=== PATIENT | male | born 1980 | race Caucasian/White ===

== ENCOUNTER 2018-03-01 04:55 | Emergency (ER) | payer SELFPAY ==
[2018-03-01 05:03] VITALS: BP 126/77
[2018-03-01] MEDS ORDERED: HYDROCODONE/ACETAMINOPHEN 5-325 MG TABLET PO ONE (05:31)
[2018-03-01] MEDS ORDERED: CLINDAMYCIN HCL 150 MG CAPSULE PO ONE (05:31)
[2018-03-01] MEDS ORDERED: HYDROCODONE/ACETAMINOPHEN 5-325 MG (6 TAB/ER DISP) PO PRN (05:31)
--- NOTE | 2018-03-01 05:36 | ER Document Report ---
ED General - General Chief Complaint: Toothache Stated Complaint: TOOTHACHE Time Seen by Provider: 03/01/18 05:26 Notes: Patient is a 37-year-old male who presents with complaint of tooth pain. His pain in both lower and upper premolars. He says he has had this pain for approximately week and has worsened. He says he cannot sleep. Has not yet seen a dentist. He has not been on any antibiotics. He is on a facial swelling. No difficulty breathing or swallowing. No fevers. No other complaints at this time. TRAVEL OUTSIDE OF THE [place] IN LAST 30 DAYS: No - Related Data Allergies/Adverse Reactions: codeine [Codeine] Allergy (Verified 08/18/14 22:33) Penicillins Allergy (Verified 08/18/14 22:32) rash Past Medical History - Social History Smoking Status: Unknown if Ever Smoked Frequency of alcohol use: None Drug Abuse: None Family History: CAD, Hyperlipidemia, Hypertension Pulmonary Medical History: Reports: Hx Asthma, Hx Bronchitis, Hx Pneumonia - Immunizations Hx Diphtheria, Pertussis, Tetanus Vaccination: Yes - 2009 Review of Systems - Review of Systems Notes: My Normal Review Basic REVIEW OF SYSTEMS: CONSTITUTIONAL : Denies fever, chills, or sweats. Denies recent illness. EENT: Dental pain CARDIOVASCULAR: Denies chest pain. SKIN: Denies rash or skin lesions. NEUROLOGICAL: Denies altered mental status or loss of consciousness. ALL OTHER SYSTEMS REVIEWED AND NEGATIVE. Physical Exam - Vital signs Vitals: Pulse Resp BP Pulse Ox 67 18 126/77 H 97 03/01/18 05:01 03/01/18 05:01 03/01/18 05:01 03/01/18 05:01 - Notes Notes: General Appearance: Well nourished, alert, cooperative, no acute distress, moderate obvious discomfort. Vitals: reviewed, See vital signs table. Head: no swelling or tenderness to the head Eyes: PERRL, EOMI, Conjuctiva clear Mouth: No decreasd moisture. Patient has very bad dentition throughout his entire mouth. He has multiple eroded teeth with significant cavity. No gingival abscess on exam. Throat: No tonsillar inflammation, No airway obstruction, No lymphadenopathy Neck: Supple, no neck tenderness, No neck swelling. Heart: Normal rate, Regular rythm, No murmur, no rub Neuro: speech clear, oriented x 3, normal affect, responds appropriately to questions. Course - Re-evaluation Re-evalutation: 03/01/18 05:47 Patient given dose pain medicine. Will be placed clindamycin. I talked to him the importance of follow-up with dentist. His mom said they will [facility] to make a close follow-up appointment. Encourage him return to ER if his facial swelling, neck swelling, difficulty breathing, or difficulty swallowing. Patient agrees with plan will be discharged home. Dictation of this chart was performed using voice recognition software; therefore, there may be some unintended grammatical errors. - Vital Signs Vital signs: Temp Pulse Resp BP Pulse Ox 67 18 126/77 H 97 03/01/18 05:01 03/01/18 05:01 03/01/18 05:01 03/01/18 05:01 Discharge - Discharge Clinical Impression: Pain, dental Condition: Good Disposition: HOME, SELF-CARE Instructions: Oral Narcotic Medication ([facility]) Additional Instructions: Please be aware that [facility] does have Tylenol (acetaminophen) in it. Please make sure you do not take more than 4000 mg of acetaminophen a day. Do not drive or care for children after you have taken this medication they will make you sleepy and sometimes impair judgment. Please make an appointment to see a dentist as soon as possible to arrange for removal of your affected teeth and further treatment. Please return to ER immediately if you have swelling below the jaw, swelling to the neck, difficulty breathing, or difficulty swallowing. Prescriptions: Clindamycin HCl 300 mg PO ASDIR #56 capsule
== END 2018-03-01 05:51 | disposition home or self-care (01) ==
LOC: ER 04:55
DX: K02.9 Dental caries, unspecified (principal); K03.2 Erosion of teeth; K08.89 Other specified disorders of teeth and supporting structures; J45.909 Unspecified asthma, uncomplicated; Z88.5 Allergy status to narcotic agent; Z88.0 Allergy status to penicillin
CPT/HCPCS: 99282